=== PATIENT | male | born 1950 | race Two or more races ===

== ENCOUNTER 2018-12-12 16:45 | Emergency (ER) | payer MEDICARE, OTHER ==
[~2018-12-12] VITALS: Ht 170.2 cm; Wt 63.0 kg
[~2018-12-12 16:45] MED LIST: METFORMIN HCL500 M1 ORAL; NKM; SIMVASTATIN20 MG ORAL
--- NOTE | 2018-12-12 17:18 | NUR ---
ED Nurse Note: patient came into ED for c/o left abd pain started today states n/v at home
[2018-12-12 17:34] VITALS: BP 150/56
[2018-12-12] MEDS ORDERED: Morphine Sulfate 4mg/ml Inj (IV/IM USE ONLY) IVP ONE (18:00)
[2018-12-12] MEDS ORDERED: Isovue-300 100ml vial INJ PRN (18:00)
[2018-12-12 18:08] LABS: BASOPHILS % (AUTO) 1.3 % (0.0-2.0); EOSINOPHILS % (AUTO) 0.7 % (0.0-3.0); HEMATOCRIT 45.7 % (42.0-52.0); HEMOGLOBIN 15.5 G/DL (14.2-18.0); LYMPHOCYTES % (AUTO) 8.3 % (20.0-45.0); MEAN CORPUSCULAR VOLUME 93 FL (80-99); MONOCYTES % (AUTO) 4.8 % (1.0-10.0); NEUTROPHILS % (AUTO) 84.9 % (45.0-75.0); PLATELET COUNT 208 K/UL (150-450); RED BLOOD COUNT 4.89 M/UL (4.70-6.10); RED CELL DISTRIBUTION WIDTH 11.6 % (11.6-14.8); WHITE BLOOD COUNT 12.7 K/UL (4.8-10.8)
[2018-12-12 18:19] LABS: ANION GAP 9 mmol/L (5-15); BLOOD UREA NITROGEN 19 mg/dL (7-18); CALCIUM 9.5 MG/DL (8.5-10.1); CARBON DIOXIDE 28 MMOL/L (21-32); CHLORIDE 99 MMOL/L (98-107); CREATININE 1.2 MG/DL (0.55-1.30); POTASSIUM 4.3 MMOL/L (3.5-5.1); SODIUM 136 MMOL/L (136-145)
[2018-12-12 18:24] LABS: ALANINE AMINOTRANSFERASE 28 U/L (12-78); ALBUMIN 3.9 G/DL (3.4-5.0); ALKALINE PHOSPHATASE 91 U/L (46-116); ASPARTATE AMINO TRANSFERASE 25 U/L (15-37); BILIRUBIN,TOTAL 0.3 MG/DL (0.2-1.0)
--- NOTE | 2018-12-12 18:38 | NUR ---
ED Nurse Note: patient went down for CT
--- NOTE | 2018-12-12 19:10 | NUR ---
ED Nurse Note: patient came back from CT
--- NOTE | 2018-12-12 19:22 | NUR ---
HAND-OFF: Report given to Jacquelyn Bolanos RN.
[2018-12-12 19:43] VITALS: BP 135/55
--- NOTE | 2018-12-12 21:11 | Emergency Room Report ---
History of Present Illness General Chief Complaint: Abdominal Pain Source: Patient Present Illness HPI 68-year-old male presents ED for evaluation. Complaining of abdominal pain and vomiting 1 day. Pain is dull, 7 out of 10, nonradiating. Denies fevers or chills. Denies chest pain or shortness of breath. States he's had previous abdominal surgeries. History of bowel obstruction. States he is not having bowel movements. No other aggravating relieving factors. Denies any other associated symptoms Allergies: Coded Allergies: No Known Allergies (Unverified , 03/25/15) Patient History Past Medical History: DM, HTN, asthma Past Surgical History: none Pertinent Family History: none Social History: Denies: smoking, alcohol use, drug use Immunizations: UTD Reviewed Nursing Documentation: PMH: Agreed; PSxH: Agreed Nursing Documentation-PMH Past Medical History: No History, Except For Hx Cardiac Problems: Yes Hx Hypertension: Yes Hx Asthma: Yes Hx Diabetes: Yes Hx Cancer: No Hx Gastrointestinal Problems: Yes Hx Neurological Problems: No Review of Systems All Other Systems: negative except mentioned in HPI Physical Exam Vital Signs Date Time Temp Pulse Resp B/P (MAP) Pulse Ox O2 Delivery O2 Flow Rate FiO2 12/12/18 17:18 97.9 74 18 143/70 98 Room Air Sp02 EP Interpretation: reviewed, normal General Appearance: no apparent distress, alert, GCS 15, non-toxic Head: normocephalic, atraumatic Eyes: bilateral eye normal inspection, bilateral eye PERRL ENT: hearing grossly normal, normal pharynx, no angioedema, normal voice Neck: full range of motion, supple/symm/no masses Respiratory: chest non-tender, lungs clear, normal breath sounds, speaking full sentences Cardiovascular #1: regular rate, rhythm, no edema Cardiovascular #2: 2+ carotid (R), 2+ carotid (L), 2+ radial (R), 2+ radial (L) , 2+ dorsalis pedis (R), 2+ dorsalis pedis (L) Gastrointestinal: normal bowel sounds, soft, non-distended, no guarding, no rebound, tenderness, other - midline surgical scar Rectal: deferred Genitourinary: normal inspection, no CVA tenderness Musculoskeletal: back normal, gait/station normal, normal range of motion, non- tender Neurologic: alert, oriented x3, responsive, motor strength/tone normal, sensory intact, speech normal Psychiatric: judgement/insight normal, memory normal, mood/affect normal, no suicidal/homicidal ideation Reflexes: 3+ bicep (R), 3+ bicep (L), 3+ tricep (R), 3+ tricep (L), 3+ knee (R) , 3+ knee (L) Skin: normal color, no rash, warm/dry, well hydrated Lymphatic: no adenopathy Medical Decision Making Diagnostic Impression: Primary Impression: Small bowel obstruction ER Course Hospital Course 68-year-old male presents to ED with abdominal pain and vomiting. History of bowel obstruction Differential diagnoses include: BPH, cystitis, pyelonephritis, kidney stone,SBO Clinical course Patient placed on stretcher. telemetry monitor. After initial history and physical I ordered labs, IV fluids, UA, pain medication and CT scan Labs - minimal leukocytosis, Hb/Hct stable. electrolytes ok. CT abdomen and pelvis - bowel obstruction, occlusion in proximal SMA with distal reconstitution NG tube placed. Cause of insurance patient will be transferred. Patient not in distress. WBC within normal limits. No blood in stool. lactic acid pending I feel this is a highly complex case requiring extensive working including EKG/ Rhythm strip, Xray/CT/US, Blood/urine lab work, repeat exams while in ED, and administration of strong opiates/narcotics for pain control, admission to hospital or close patient follow up. Diagnosis - small bowel obstruction Transferred in serious condition Labs Test 12/12/18 18:00 12/12/18 20:30 White Blood Count 12.7 K/UL (4.8-10.8) Red Blood Count 4.89 M/UL (4.70-6.10) Hemoglobin 15.5 G/DL (14.2-18.0) Hematocrit 45.7 % (42.0-52.0) Mean Corpuscular Volume 93 FL (80-99) Mean Corpuscular Hemoglobin 31.7 PG (27.0-31.0) Mean Corpuscular Hemoglobin Concent 34.0 G/DL (32.0-36.0) Red Cell Distribution Width 11.6 % (11.6-14.8) Platelet Count 208 K/UL (150-450) Mean Platelet Volume 8.2 FL (6.5-10.1) Neutrophils (%) (Auto) 84.9 % (45.0-75.0) Lymphocytes (%) (Auto) 8.3 % (20.0-45.0) Monocytes (%) (Auto) 4.8 % (1.0-10.0) Eosinophils (%) (Auto) 0.7 % (0.0-3.0) Basophils (%) (Auto) 1.3 % (0.0-2.0) Sodium Level 136 MMOL/L (136-145) Potassium Level 4.3 MMOL/L (3.5-5.1) Chloride Level 99 MMOL/L (98-107) Carbon Dioxide Level 28 MMOL/L (21-32) Anion Gap 9 mmol/L (5-15) Blood Urea Nitrogen 19 mg/dL (7-18) Creatinine 1.2 MG/DL (0.55-1.30) Estimat Glomerular Filtration Rate > 60 mL/min (>60) Glucose Level 192 MG/DL (74-106) Calcium Level 9.5 MG/DL (8.5-10.1) Total Bilirubin 0.3 MG/DL (0.2-1.0) Aspartate Amino Transf (AST/SGOT) 25 U/L (15-37) Alanine Aminotransferase (ALT/SGPT) 28 U/L (12-78) Alkaline Phosphatase 91 U/L (46-116) Total Protein 7.9 G/DL (6.4-8.2) Albumin 3.9 G/DL (3.4-5.0) Globulin 4.0 g/dL Albumin/Globulin Ratio 1.0 (1.0-2.7) Lipase 160 U/L (73-393) CT/MRI/US Diagnostic Results CT/MRI/US Diagnostic Results : Imaging Test Ordered: CT A/P Impression Dilated proximal small bowel loops and decompressed distal segments suggesting small obstruction. 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
--- NOTE | 2018-12-12 21:30 | NUR ---
ER Nurse Note: Pt a&ox4, VSS, no signs of distress. NG tube to right nares at 50cc; taped down; tolerated well. IV right AC 20 gauge; patent. All orders completed per ERMD orders. Repeat lactic sent; awaiting results. Awaiting transportation for continutiy of care; all safety measures met. Will continue to [facility].
[2018-12-12 21:58] VITALS: BP 148/58
--- NOTE | 2018-12-12 22:22 | NUR ---
ER Nurse Note: Report given to Luz Marina at [facility] for continuity of care. Pt VSS, no signs of distress. IV intact and patent; All belongings taken with pt and [facility].
[2018-12-12 22:28] VITALS: BP 148/58
--- NOTE | 2018-12-13 10:05 | Diagnostic Imaging Report ---
Clinical Indication: Abdominal pain Technique: No oral contrast utilized, per emergency room physician request IV administration nonionic contrast. Venous phase spiral acquisition obtained through the abdomen and pelvis. Multiplanar reconstructions were generated. Total dose length product 633.08 mGycm. CTDIvol(s) 12.27 mGy. Dose reduction achieved using automated exposure control Comparison: 05/25/2015 Findings: As previously, small bowel loops are dilated. This predominantly involves the jejunum, with collapsed distal ileum present. Exact transition point is uncertain, suspected in the left lower quadrant but there is also possible transition point in the right lower quadrant. The degree of small bowel distention appears similar to the prior exam, but a greater length of small bowel appears to be distended currently. Anastomotic ojb are seen within right upper quadrant small bowel, also evident previously. The appendix is normal. No evidence of diverticulosis or diverticulitis. No free or loculated intraperitoneal gas or fluid is evident. The distal esophagus, stomach, duodenum are unremarkable. 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 This is also evident on the prior exam The liver demonstrates a subcentimeter low-attenuation lesion in segment 4A, is otherwise unremarkable. The gallbladder, bile ducts, pancreas, spleen, adrenals are unremarkable. The left kidney demonstrates an interpolar region cyst. Both kidneys demonstrate subcentimeter low-attenuation lesions which are too small to characterize, most likely benign simple cysts no pelvic mass or adenopathy. No retroperitoneal or mesenteric mass or adenopathy. Bone window images demonstrate a subacute appearing Fracture of the right posterolateral 10th rib. There is an incompletely healed subacute appearing fracture of the lateral ninth rib and a nearly completely healed fracture of the anterolateral seventh rib. There is also an incompletely healed right inferior pubic ramus fracture which was not evident previously. There are degenerative spondylosis changes The included lung bases are clear.. 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 Also described on prior study 05/25/2015 Subcentimeter left lobe liver lesion, too small to characterize, most likely benign simple cyst or bile hamartoma Left renal cysts. Subcentimeter bilateral lower attenuation renal lesions, too small to characterize, most likely benign simple cysts. No further follow-up necessary This agrees with the preliminary interpretation provided overnight by [facility]. The CT scanner at [facility] is accredited by the [employer] and the scans are performed using protocols designed to limit radiation exposure to as low as reasonably achievable to attain images of sufficient resolution adequate for diagnostic evaluation.
== END 2018-12-12 22:29 | disposition short-term general hospital (02) ==
LOC: EMR 19:35
DX: K56.609 Unspecified intestinal obstruction, unspecified as to partial versus complete obstruction (principal); I10 Essential (primary) hypertension; E11.9 Type 2 diabetes mellitus without complications; J45.909 Unspecified asthma, uncomplicated
CPT/HCPCS: 36415; 74177; 80053; 83605; 83690; 85025; 96361; 96374; 96375; 99284; J2270; J2405; Q9967